=== PATIENT | female | born 1970 | race Caucasian/White ===

== ENCOUNTER 2016-12-25 11:37 | Emergency (ER) | payer SELFPAY ==
[2016-12-25 11:38] VITALS: BMI 21.4
[2016-12-25 11:51] VITALS: RESP 16
[2016-12-25 12:21] VITALS: TEMP 99.6
[2016-12-25] MEDS ORDERED: Sodium Chloride 0.9% 1,000 ML IV STA (12:24)
[2016-12-25 12:52] LABS: ADD MANUAL DIFF? NO
[2016-12-25 12:59] LABS: BASO # 0.01 K/mm3 (0.0-2.0); BASO % 0.2 % (0.0-3.0); EOS # 0.1 (0.0-0.7); EOS % 1.6 % (1.5-5.0); GRAN # 3.09 (1.4-6.5); GRAN % 61.1 % (50.0-68.0); HEMATOCRIT 37.5 % (36.0-48.0); LYMPH # 1.2 (1.2-3.4); LYMPH % 24.1 % (22.0-35.0); MEAN CELL VOLUME 92.1 fL (80.0-105.0); MEAN CORPUSCULAR HEMOGLOBIN 31.4 pg (25.0-35.0); MEAN CORPUSCULAR HGB CONC 34.1 g/dl (31.0-37.0); MEAN PLATELET VOLUME 9.6 fl (7.0-11.0); MONO # 0.7 (0.1-0.6); PLATELET COUNT 232 10^3/uL (120.0-450.0); WHITE BLOOD COUNT 5.1 10^3/ul (4.5-11.0)
[2016-12-25 13:01] LABS: URINE BILIRUBIN NEGATIVE (NEGATIVE); URINE BLOOD TRACE-INTACT (NEGATIVE); URINE GLUCOSE (UA) NEGATIVE (NEGATIVE); URINE KETONE NEGATIVE (NEGATIVE); URINE LEUKOCYTE ESTERASE SMALL Leu/uL (NEGATIVE); URINE PROTEIN TRACE mg/dL (<30 mg/dL); URINE UROBILINOGEN 0.2 E.U./dL (<1 E.U./dL)
[2016-12-25 13:04] LABS: URINE APPEARANCE SL CLOUDY (CLEAR); URINE COLOR YELLOW (YELLOW)
[2016-12-25 13:08] LABS: INR 0.91 (0.93-1.08); PARTIAL THROMBOPLASTIN TIME 26.1 Seconds (23.7-30.8)
--- NOTE | 2016-12-25 13:10 | ED PDOC ---
Arrival/HPI - General Chief Complaint: Abdominal Pain Time Seen by Provider: 12/25/16 11:54 Historian: Patient - History of Present Illness Narrative History of Present Illness (Text): 12/25/16 12:59 A 46 year old female, whose past medical history includes hypertension and asthma, presents to the emergency department complaining of dysuria since last night. Patient reports her LMP was on the 14th. Patient states she has vaginal spotting upon urination and left sided flank pain. She reports she has had a UTI about 5 years ago. Patient denies any diarrhea, constipation, fevers, nausea , vomiting, nausea, chest pain, shortness of breath, abdominal pain or any other complaints at this time. Symptom Onset: Sudden Symptom Course: Unchanged Activities at Onset: Rest Context: Home Associated Symptoms (Text): chills Past Medical History - Provider Review Nursing Documentation Reviewed: Yes - Infectious Disease Hx of Infectious Diseases: None - Tetanus Immunization Tetanus Immunization: Unknown - Reproductive Menopause: No - Cardiac Hx Cardiac Disorders: No Hx Hypertension: Yes - Pulmonary Hx Asthma: Yes - Neurological Hx Neurological Disorder: No - HEENT Hx HEENT Disorder: No - Renal Hx Renal Disorder: No - Endocrine/Metabolic Hx Endocrine Disorders: No - Hematological/Oncological Hx Blood Disorders: No - Integumentary Hx Dermatological Disorder: No - Musculoskeletal/Rheumatological Hx Musculoskeletal Disorders: No - Gastrointestinal Hx Gastrointestinal Disorders: No - Genitourinary/Gynecological Hx Genitourinary Disorders: No - Psychiatric Hx Psychophysiologic Disorder: No Hx Substance Use: No - Past Surgical History Past Surgical History: No Previous - Anesthesia Hx Anesthesia: No - Suicidal Assessment Feels Threatened In Home Enviroment: No Family/Social History - Physician Review Nursing Documentation Reviewed: Yes Family/Social History: No Known Family HX Smoking Status: Light Smoker < 10 Cigarettes Daily Hx Alcohol Use: Yes Hx Substance Use: No Hx Substance Use Treatment: No Allergies/Home Meds Allergies/Adverse Reactions: Allergies seasonal Allergy (Uncoded 12/25/16 11:51) CONGESTION Home Medications: Home Meds Medication Instructions Recorded Confirmed Fluticasone/Salmeterol [Advair 1 puff IH BID 02/27/12 12/25/16 Diskus 250/50] Montelukast [Singulair] 10 mg PO DAILY PRN 06/05/14 12/25/16 Lisinopril [Zestril] 20 mg PO DAILY 12/25/16 12/25/16 Review of Systems - Physician Review All systems were reviewed & negative as marked: Yes - Review of Systems Constitutional: Other (chills). absent: Fevers Respiratory: absent: SOB Cardiovascular: absent: Chest Pain Gastrointestinal: absent: Abdominal Pain, Constipation, Diarrhea, Nausea, Vomiting Genitourinary Female: Dysuria, Other (vaginal spotting) Musculoskeletal: Other (L side flank pain) Physical Exam Vital Signs Reviewed: Yes Vital Signs Temp Pulse Resp BP Pulse Ox 12/25/16 12:20 99.6 F 12/25/16 11:48 99.7 F H 98 H 16 158/112 H 97 Temperature: Afebrile Blood Pressure: Hypertensive Pulse: Regular Respiratory Rate: Normal Appearance: Positive for: Well-Appearing, Non-Toxic, Comfortable Pain Distress: None Mental Status: Positive for: Alert and Oriented X 3 - Systems Exam Head: Present: Atraumatic, Normocephalic Pupils: Present: PERRL Extroacular Muscles: Present: EOMI Conjunctiva: Present: Normal Mouth: Present: Moist Mucous Membranes Neck: Present: Normal Range of Motion Respiratory/Chest: Present: Clear to Auscultation, Good Air Exchange. No: Respiratory Distress, Accessory Muscle Use Abdomen: Present: Normal Bowel Sounds. No: Tenderness, Distention, Peritoneal Signs Back: Present: CVA Tenderness (left) Upper Extremity: Present: Normal Inspection. No: Cyanosis, Edema Lower Extremity: Present: Normal Inspection. No: Edema Neurological: Present: GCS=15, CN II-XII Intact, Speech Normal Skin: Present: Warm, Dry, Normal Color. No: Rashes Psychiatric: Present: Alert, Oriented x 3, Normal Insight, Normal Concentration Medical Decision Making ED Course and Treatment: 12/25/16 13:11 Impression: 46 year old female with dysuria and left sided flank pain. Differential Diagnosis included but are not limited to: Renal stone vs pyelonephritis Plan: -- CT abd/pelvis -- Urinalysis -- Labs -- IV fluids, Toradol, Pyridium -- Reassess and disposition Prior Visits: Notes and results from previous visits were reviewed. On 06/05/14 patient came in complaining of dull headache. Patient was discharged and advised to follow up with PMD. Progress Notes: CT abd/pelvis: FINDINGS: LOWER THORAX: Mild passive atelectasis both lung bases. There also appears to some linear scarring in the left lung base. No effusion or basilar pneumothorax. Tiny hiatal hernia. LIVER: Liver exhibits normal size measuring approximately 15 cm in CC dimension. No obvious hepatic mass or collection. GALLBLADDER AND BILE DUCTS: Gallbladder is appears incompletely distended. See above discussion. No evidence of intraluminal gallbladder calculi. PANCREAS: The pancreas is poorly delineated due to on the lack of oral contrast material within adjacent bowel and paucity of both intraperitoneal as well as retroperitoneal fat. No gross pancreatic mass or collection seen. No abnormal pancreatic calcifications. The SPLEEN: Spleen exhibits normal size and attenuation pattern without mass collection calcification. ADRENALS: There are no adrenal lesions. KIDNEYS AND URETERS: The kidneys exhibit relatively symmetric size. There appears to be at incomplete and/or malrotation right kidney. No evidence of nephrolithiasis or hydronephrosis. No obvious renal mass or collection seen on this noncontrast study. BLADDER: Urinary bladder appears incompletely distended which may in part account for thick-walled appearance however cystitis must be considered. The REPRODUCTIVE: Questionable nabothian cyst left aspect of the cervix. There may be a small approximately 15 mm left ovarian cyst. Pelvic ultrasound could be performed further evaluation if necessary. APPENDIX: Appendix is not seen with complete certainty. No inflammatory changes right lower quadrant of the abdomen. BOWEL: Evaluation of the bowel is limited due to the lack of oral contrast. The stomach is incompletely distended which presumably accounts for thick-walled appearance. Visualized loops small bowel exhibit normal contour and caliber. No evidence of acute mechanical small bowel obstruction. . Moderate amount of stool is seen within cecum at ascending colon as well as proximal transverse colon consistent with mild fecal retention/constipation. PERITONEUM: Unremarkable. No fluid collection. No free air. LYMPH NODES: Unremarkable. No enlarged lymph nodes. VASCULATURE: Unremarkable. No aortic aneurysm. BONES: No fracture or destructive lesion. OTHER FINDINGS: None. IMPRESSION: Slightly limited study as above. No evidence of nephrolithiasis or hydronephrosis. Wall thickening of the urinary bladder suggesting cystitis. Clinical correlation recommended. . . Malrotation and/or incomplete rotation right kidney. Questionable incidental left nabothian cyst. There may also be small left ovarian cyst Findings suggest mild constipation. 12/25/16 15:01 Patient with notes history with L CVA tenderness. Vitals show no fever and labs with no leukocytosis and unremarkable chemistry. Urine shows UTI. Givn toradol, IVF and feeling much better. Given first dose of rocephin in the ED CT a/p shows no stone - no indication for admission - will d/c on abx and recommend high fiber diet for constipation found on CT a/p; she has a pmd with whom she can follow up. - Lab Interpretations Lab Results: 12/25/16 12:51 12/25/16 12:51 Lab Results 12/25/16 12:51: Sodium 141, Potassium 4.4, Chloride 104, Carbon Dioxide 29, Anion Gap 12, BUN 13, Creatinine 0.8, Est GFR ( Amer) > 60, Est GFR (Non- Af Amer) > 60, Random Glucose 79, Calcium 9.2, Total Bilirubin 0.5, AST 21, ALT 25, Alkaline Phosphatase 41, Total Protein 7.6, Albumin 4.0, Globulin 3.6, Albumin/Globulin Ratio 1.1, Lipase 130 12/25/16 12:51: Urine Color Yellow, Urine Appearance Sl cloudy, Urine pH 6.0, Ur Specific Woody 1.025, Urine Protein Trace H, Urine Glucose (UA) Negative, Urine Ketones Negative, Urine Blood Trace-intact H, Urine Nitrate Negative, Urine Bilirubin Negative, Urine Urobilinogen 0.2, Ur Leukocyte Esterase Small H , Urine RBC 1 - 3, Urine WBC 20 - 25, Ur Epithelial Cells 6 - 8, Urine Bacteria Mod, Urine HCG, Qual Negative 12/25/16 12:51: PT 9.8 L, INR 0.91 L, APTT 26.1 12/25/16 12:51: WBC 5.1, RBC 4.07, Hgb 12.8, Hct 37.5, MCV 92.1, MCH 31.4, MCHC 34.1, RDW 13.0, Plt Count 232, MPV 9.6, Gran % 61.1, Lymph % (Auto) 24.1, Osborne % (Auto) 13.0 H, Eos % (Auto) 1.6, Baso % (Auto) 0.2, Gran # 3.09, Lymph # 1.2, Osborne # 0.7 H, Eos # 0.1, Baso # 0.01 I have reviewed the lab results: Yes - RAD Interpretation Radiology Orders: 12/25/16 12:24 ABD & PELVIS W/O PO OR IV CONT [CT] Stat - Medication Orders Current Medication Orders: Discontinued Medications Sodium Chloride (Sodium Chloride 0.9%) 1,000 mls @ 999 mls/hr IV .Q1H1M STA Stop: 12/25/16 13:24 Last Admin: 12/25/16 13:00 Dose: 999 mls/hr Ceftriaxone Sodium (Rocephin 1 Gram Ivpb) 1 gm in 100 mls @ 200 mls/hr IV ONCE STA PRN Reason: Protocol Stop: 12/25/16 14:06 Last Admin: 12/25/16 14:10 Dose: 200 mls/hr Ketorolac Tromethamine (Toradol) 30 mg IVP STAT STA Stop: 12/25/16 12:25 Last Admin: 12/25/16 13:45 Dose: 30 mg Phenazopyridine HCl (Pyridium) 200 mg PO STAT STA Stop: 12/25/16 12:33 Last Admin: 12/25/16 13:00 Dose: 200 mg - Varshaibe Statement The provider has reviewed the documentation as recorded by the Arley Schwartz All medical record entries made by the Arley were at my direction and personally dictated by me. I have reviewed the chart and agree that the record accurately reflects my personal performance of the history, physical exam, medical decision making, and the department course for this patient. I have also personally directed, reviewed, and agree with the discharge instructions and disposition. Disposition/Present on Arrival - Present on Arrival Any Indicators Present on Arrival: No History of DVT/PE: No History of Uncontrolled Diabetes: No Urinary Catheter: No History of Decub. Ulcer: No History Surgical Site Infection Following: None - Disposition Have Diagnosis and Disposition been Completed?: Yes Diagnosis: Urinary tract infection Disposition: HOME/ ROUTINE Disposition Time: 15:05 Patient Plan: Discharge Condition: GOOD Discharge Instructions (ExitCare): Urinary Tract Infection in Children (ED), High Fiber Diet (ED) Additional Instructions: Drink plenty of fluids and recommend cranberry juice. Take the antibiotics as prescribed and recommend high fiber diet. Follow up with your primary care doctor and quality control lab tech. Return to the emergency department if any new concerning symptoms. Prescriptions: Nitrofurantoin Macrocrystals [Macrobid] 100 mg PO BID #14 cap Phenazopyridine HCl [Pyridium] 1 tab PO TID PRN #6 tablet PRN Reason: Urinary Discomt
[2016-12-25 13:11] LABS: ALB/GLOB RATIO 1.1 (1.1-1.8); ALKALINE PHOSPHATASE 41 U/L (38-133); ALT/SGPT 25 U/L (7-56); AST/SGOT 21 U/L (15-39); BILIRUBIN,TOTAL 0.5 mg/dL (0.2-1.3); BLOOD UREA NITROGEN 13 mg/dL (7-21); CALCIUM 9.2 mg/dL (8.4-10.5); CARBON DIOXIDE 29 mmol/L (21-33); CHLORIDE 104 mmol/L (98-107); GFR AFRICAN-AMERICAN > 60; GLUCOSE,RANDOM 79 mg/dL (70-110); LIPASE 130 U/L (23-300); POTASSIUM 4.4 mmol/L (3.6-5.0); SODIUM 141 mmol/L (132-148); TOTAL PROTEIN 7.6 g/dL (5.8-8.3); URINE WBC 20 - 25 /hpf (0-6)
[2016-12-25 13:13] LABS: URINE BACTERIA MOD (NEG)
[2016-12-25] MEDS ORDERED: cefTRIAXone 1 gm 1 GM/100 ML BAG IV STA (13:37)
--- NOTE | 2016-12-25 14:56 | CT ---
PROCEDURE: CT Abdomen and pelvis without oral or intravenous contrast material. HISTORY: L flank pain, urinary symptoms - r/o stone COMPARISON: No prior study available comparison. TECHNIQUE: Contiguous axial images of the abdomen and pelvis performed without oral or intravenous contrast material. . Coronal and Sagittal reformats generated. Radiation dose: Total exam DLP = 201.72 mGy-cm. This CT exam was performed using one or more of the following dose reduction techniques: Automated exposure control, adjustment of the mA and/or kV according to patient size, and/or use of iterative reconstruction technique. FINDINGS: LOWER THORAX: Mild passive atelectasis both lung bases. There also appears to some linear scarring in the left lung base. No effusion or basilar pneumothorax. Tiny hiatal hernia. LIVER: Liver exhibits normal size measuring approximately 15 cm in CC dimension. No obvious hepatic mass or collection. GALLBLADDER AND BILE DUCTS: Gallbladder is appears incompletely distended. See above discussion. No evidence of intraluminal gallbladder calculi. PANCREAS: The pancreas is poorly delineated due to on the lack of oral contrast material within adjacent bowel and paucity of both intraperitoneal as well as retroperitoneal fat. No gross pancreatic mass or collection seen. No abnormal pancreatic calcifications. The SPLEEN: Spleen exhibits normal size and attenuation pattern without mass collection calcification. ADRENALS: There are no adrenal lesions. KIDNEYS AND URETERS: The kidneys exhibit relatively symmetric size. There appears to be at incomplete and/or malrotation right kidney. No evidence of nephrolithiasis or hydronephrosis. No obvious renal mass or collection seen on this noncontrast study. BLADDER: Urinary bladder appears incompletely distended which may in part account for thick-walled appearance however cystitis must be considered. The REPRODUCTIVE: Questionable nabothian cyst left aspect of the cervix. There may be a small approximately 15 mm left ovarian cyst. Pelvic ultrasound could be performed further evaluation if necessary. APPENDIX: Appendix is not seen with complete certainty. No inflammatory changes right lower quadrant of the abdomen. BOWEL: Evaluation of the bowel is limited due to the lack of oral contrast. The stomach is incompletely distended which presumably accounts for thick-walled appearance. Visualized loops small bowel exhibit normal contour and caliber. No evidence of acute mechanical small bowel obstruction. . Moderate amount of stool is seen within cecum at ascending colon as well as proximal transverse colon consistent with mild fecal retention/constipation. PERITONEUM: Unremarkable. No fluid collection. No free air. LYMPH NODES: Unremarkable. No enlarged lymph nodes. VASCULATURE: Unremarkable. No aortic aneurysm. BONES: No fracture or destructive lesion. OTHER FINDINGS: None. IMPRESSION: Slightly limited study as above. No evidence of nephrolithiasis or hydronephrosis. Wall thickening of the urinary bladder suggesting cystitis. Clinical correlation recommended. . . Malrotation and/or incomplete rotation right kidney. Questionable incidental left nabothian cyst. There may also be small left ovarian cyst Findings suggest mild constipation. See above discussion for additional findings and details.
[2016-12-25 16:06] VITALS: BP 147/92; PULSE 83; O2SAT 99
== END 2016-12-25 15:25 | disposition home or self-care (01) ==
LOC: ED 11:37
DX: N39.0 Urinary tract infection, site not specified (principal); F17.210 Nicotine dependence, cigarettes, uncomplicated; I10 Essential (primary) hypertension
CPT/HCPCS: 74176; 80053; 81001; 83690; 84703; 85025; 85610; 85730; 87086; 87181; 96374; 99283; J0696; J1885; J7040

== ENCOUNTER 2018-02-27 20:43 | Emergency (ER) | payer SELFPAY ==
[2018-02-27 21:00] VITALS: RESP 18; TEMP 98.8; BMI 21.2
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
[2018-02-27 21:58] LABS: BASO # 0.01 K/mm3 (0.0-2.0); BASO % 0.2 % (0.0-3.0); EOS # 0.2 (0.0-0.7); EOS % 2.4 % (1.5-5.0); GRAN # 3.83 (1.4-6.5); GRAN % 61.3 % (50.0-68.0); HEMOGLOBIN 11.4 g/dL (12.0-16.0); LYMPH # 1.8 (1.2-3.4); LYMPH % 28.2 % (22.0-35.0); MEAN CELL VOLUME 90.4 fl (80.0-105.0); MEAN CORPUSCULAR HEMOGLOBIN 31.1 pg (25.0-35.0); MEAN CORPUSCULAR HGB CONC 34.4 g/dl (31.0-37.0); MEAN PLATELET VOLUME 9.4 fl (7.0-11.0); MONO # 0.5 (0.1-0.6); MONO % 7.9 % (1.0-6.0); RBC 3.66 10^6/uL (3.5-6.1); RED CELL DISTRIBUTION WIDTH 13.8 % (11.5-14.5); WHITE BLOOD COUNT 6.2 10^3/ul (4.5-11.0)
[2018-02-27 22:03] LABS: ALB/GLOB RATIO 1.1 (1.1-1.8); ALBUMIN 3.7 g/dL (3.0-4.8); ALT/SGPT 27 U/L (7-56); AST/SGOT 26 U/L (14-36); BLOOD UREA NITROGEN 17 mg/dL (7-21); CALCIUM 8.7 mg/dL (8.4-10.5); GFR AFRICAN-AMERICAN > 60; GFR NON-AFRICAN AMERICAN > 60
[2018-02-27 22:48] VITALS: BP 137/92; PULSE 81; O2SAT 99
== END 2018-02-27 23:19 | disposition home or self-care (01) ==
LOC: ED 20:43
DX: L55.0 Sunburn of first degree (principal); I10 Essential (primary) hypertension; F17.210 Nicotine dependence, cigarettes, uncomplicated